=== PATIENT | male | born 2000 | race Caucasian/White ===

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

== ENCOUNTER 2018-05-25 21:54 | Inpatient (IN) | payer BC, OTHER ==
[~2018-05-25] VITALS: Ht 162.6 cm; Wt 68.2 kg
[2018-05-25 22:34] LABS: HEMATOCRIT 44.5 % (38.0-50.0); HEMOGLOBIN 15.1 G/DL (12.5-16.6); MCH 29.3 PG (29.0-34.0); MCHC 33.9 G/DL (30.0-36.0); MCV 86.4 FL (86-99); PLATELET COUNT 273 K/uL (156-360); RBC DIS.WIDTH-SD 38.1 % (39-53); RED BLOOD COUNT 5.15 M/uL (4.00-5.50); WHITE BLOOD COUNT 13.8 K/uL (4.1-10.2)
[2018-05-25 22:54] LABS: CHLORIDE 101 mEq/L (99-109); POTASSIUM 4.6 mEq/L (3.7-5.4); SODIUM 137 mEq/L (136-147)
[2018-05-25 22:56] LABS: GLUCOSE 249 mg/dL (70-99)
[2018-05-25 22:59] LABS: SERUM ETHYL ALCOHOL < 10 mg/dL
[2018-05-25 23:00] LABS: CREATININE 1.4 mg/dL (0.6-1.3); GFR ESTIMATE (CALCULATED) > 59 mL/min/ (58.99-99999)
[2018-05-25 23:02] LABS: UREA NITROGEN (BUN) 11 mg/dL (9-23)
[2018-05-25 23:03] LABS: ACETAMINOPHEN (TYLENOL) < 10 mcg/mL (10-30); SALICYLATE < 5.0 MG/DL (15-30)
[2018-05-26 01:49] LABS: AMPHETAMINE NEGATIVE (500 ng/mL); BARBITURATES NEGATIVE (200 ng/mL); BENZODIAZEPINES PRESUMPTIVE POSITIVE (150 ng/mL); BUPRENORPHINE NEGATIVE (10 ng/mL); COCAINE PRESUMPTIVE POSITIVE (150 ng/mL); METHADONE NEGATIVE (200 ng/mL); METHAMPHETAMINE NEGATIVE (500 ng/mL); OPIATES (MORPHINE) PRESUMPTIVE POSITIVE (100 ng/mL); OXYCODONE NEGATIVE (100 ng/mL); PHENCYCLIDINE NEGATIVE (25 ng/mL); PROPOXYPHENE NEGATIVE (300 ng/mL); THC CANNABINOIDS PRESUMPTIVE POSITIVE (50 ng/mL); TRICYCLIC ANTIDEPRESSANTS NEGATIVE (300 ng/mL)
[2018-05-26 02:42] LABS: BENZODIAZEPINES, URINE SCREEN POSITIVE (200 ng/mL)
[2018-05-26 03:30] LABS: ALBUMIN 4.6 g/dL (3.2-4.8)
[2018-05-26 03:33] LABS: TOTAL PROTEIN 7.5 g/dL (6.4-8.3)
[2018-05-26 03:35] LABS: TOTAL BILIRUBIN 0.5 mg/dL (0.0-1.0)
[2018-05-26 03:36] LABS: ALKALINE PHOSPHATASE 65 IU/L (3-129)
[2018-05-26 03:38] LABS: AST (GOT) 25 IU/L (2-34); DIRECT BILIRUBIN 0.2 mg/dL (0.0-0.3)
[2018-05-26 03:39] LABS: ALT (GPT) 40 IU/L (3-49)
[2018-05-26 04:54] VITALS: BP 141/89; BP 151/71
[2018-05-26 07:54] VITALS: BP 125/77
[2018-05-26 08:16] LABS: BASOPHIL (%) 0.1 % (0-1); EOSINOPHIL (%) 0 % (0-5); HEMATOCRIT 43.4 % (38.0-50.0); HEMOGLOBIN 14.4 G/DL (12.5-16.6); IMMATURE GRANULOCYTE (%) 0.3 % (0.0-0.7); LYMPHOCYTE (%) 3.6 % (15-42); LYMPHOCYTE COUNT 0.4 K/uL (1.0-2.8); MCH 28.3 PG (29.0-34.0); MCHC 33.2 G/DL (30.0-36.0); MCV 85.3 FL (86-99); MONOCYTE COUNT 0.4 K/uL (0-0.8); PLATELET COUNT 243 K/uL (156-360); RBC DIS.WIDTH-CV 11.9 % (11.8-14.6); RBC DIS.WIDTH-SD 37.1 % (39-53); RED BLOOD COUNT 5.09 M/uL (4.00-5.50); WHITE BLOOD COUNT 11.8 K/uL (4.1-10.2)
[2018-05-26 08:38] LABS: CHLORIDE 102 mEq/L (99-109); SODIUM 139 mEq/L (136-147)
[2018-05-26 08:44] LABS: CREATININE 1.1 mg/dL (0.6-1.3); GFR ESTIMATE (CALCULATED) > 59 mL/min/ (58.99-99999)
[2018-05-26 08:45] LABS: UREA NITROGEN (BUN) 8 mg/dL (9-23)
[2018-05-26 09:02] LABS: GLUCOSE 164 mg/dL (70-99)
[2018-05-26 11:57] VITALS: BP 134/87
[2018-05-26 16:21] VITALS: BP 139/87
[2018-05-26 19:24] VITALS: BP 138/85
[2018-05-26 23:55] VITALS: BP 136/78
[2018-05-27 03:55] VITALS: BP 135/85
[2018-05-27 06:52] LABS: BASOPHIL (%) 0.1 % (0-1); EOSINOPHIL (%) 0.1 % (0-5); HEMOGLOBIN 14.2 G/DL (12.5-16.6); IMMATURE GRANULOCYTE (%) 0.5 % (0.0-0.7); LYMPHOCYTE (%) 9.9 % (15-42); LYMPHOCYTE COUNT 1.1 K/uL (1.0-2.8); MCH 28.1 PG (29.0-34.0); MCHC 32.3 G/DL (30.0-36.0); MONOCYTE (%) 4.5 % (3-12); MONOCYTE COUNT 0.5 K/uL (0-0.8); NEUTROPHIL (%) 84.9 % (45-76); NEUTROPHIL COUNT 9.6 K/uL (1.8-6.4); PLATELET COUNT 256 K/uL (156-360); RBC DIS.WIDTH-CV 12.3 % (11.8-14.6); RBC DIS.WIDTH-SD 39.4 % (39-53); RED BLOOD COUNT 5.06 M/uL (4.00-5.50); WHITE BLOOD COUNT 11.3 K/uL (4.1-10.2)
[2018-05-27 07:30] LABS: CHLORIDE 106 MEQ/L (99-109); CREATININE 0.9 MG/DL (0.6-1.3); GFR ESTIMATE (CALCULATED) > 59 mL/min/ (58.99-99999); GLUCOSE 128 mg/dL (70-99); POTASSIUM 4.5 MEQ/L (3.7-5.4); SODIUM 140 MEQ/L (136-147); UREA NITROGEN (BUN) 12 mg/dL (9-23)
[2018-05-27 07:54] VITALS: BP 130/83
[2018-05-27] MEDS ORDERED: PANTOPRAZOLE SO40 MG PO (09:51)
[2018-05-27] MEDS ORDERED: ATARAX,VISTARIL50 MG PO (09:51)
[2018-05-27] MEDS ORDERED: IBUPROFEN600 MG PO (09:52)
[2018-05-27] MEDS ORDERED: DIAZEPAM5 MG PO (09:52)
[2018-05-27] MEDS ORDERED: 5-HTP200 MG PO (09:53)
[2018-05-27 11:40] VITALS: BP 127/69
[2018-05-27 15:53] VITALS: BP 135/84
[2018-05-27 19:40] VITALS: BP 118/77
[2018-05-27 23:57] VITALS: BP 119/66
[2018-05-28 03:40] VITALS: BP 134/70
[2018-05-28 07:33] VITALS: BP 136/74
[2018-05-28] MEDS ORDERED: AMOX TR-K CLV1 EAC4 PO (09:46)
[2018-05-28] MEDS ORDERED: PREDNISONE20 MG PO (09:47)
[2018-05-28] MEDS ORDERED: XOPENEX1.25 MG/0. AEROSOL (09:47)
== END 2018-05-28 13:00 | DRG 917 ==
LOC: EME 21:54 → 5SOUTH 05-26 02:40 → EDOF 05-26 02:40 → ENRESERV 05-26 02:47 → 5SOUTH 05-26 04:09 → ENRESERV 05-27 15:42 → 5SOUTH 05-27 16:08
PROVIDERS: Emergency Medicine; Hospitalist; Physician Assistant
DX: T40.1X1A Poisoning by heroin, accidental (unintentional), initial encounter (principal); T42.4X1A Poisoning by benzodiazepines, accidental (unintentional), initial encounter; J69.0 Pneumonitis due to inhalation of food and vomit; K92.0 Hematemesis; N17.9 Acute kidney failure, unspecified; F12.10 Cannabis abuse, uncomplicated; F14.90 Cocaine use, unspecified, uncomplicated; F11.90 Opioid use, unspecified, uncomplicated; J45.909 Unspecified asthma, uncomplicated; F43.10 Post-traumatic stress disorder, unspecified; F48.1 Depersonalization-derealization syndrome; F17.200 Nicotine dependence, unspecified, uncomplicated; F41.0 Panic disorder [episodic paroxysmal anxiety]; F32.9 Major depressive disorder, single episode, unspecified; Z81.8 Family history of other mental and behavioral disorders
CPT/HCPCS: 71045; 71046; 80048; 80076; 83605; 84999; 85025; 85027; 87040; 93005; 94640; 94799; 99281; 99285; G0480; J0295; J1200; J1650; J1885; J2405; J2920; J2930; J7030; J7050

== ENCOUNTER 2018-05-28 12:05 | Inpatient (IN) | payer BC, OTHER ==
[~2018-05-28 12:05] MED LIST: 5-HTP200 MG PO; AMOX TR-K CLV1 EAC4 PO; ATARAX,VISTARIL50 MG PO; DIAZEPAM5 MG PO; IBUPROFEN600 MG PO; PANTOPRAZOLE SO40 MG PO; PREDNISONE20 MG PO; XOPENEX1.25 MG/0. AEROSOL
[2018-05-28 13:45] VITALS: BP 136/97
[2018-05-28 17:22] VITALS: BP 116/62
[2018-05-29 08:08] VITALS: BP 124/73
[2018-05-29 17:06] VITALS: BP 141/75
[2018-05-30 07:45] VITALS: BP 139/63
[2018-05-30 15:24] VITALS: BP 131/96
[2018-05-31 07:38] VITALS: BP 115/76
[2018-05-31] MEDS ORDERED: ABILIFY5 MG PO (10:00)
[2018-05-31] MEDS ORDERED: PAXIL10 MG PO (10:00)
[2018-05-31] MEDS ORDERED: AMOX TR-K CLV1 EAC4 PO (10:00)
[2018-05-31] MEDS ORDERED: PREDNISONE20 MG PO (10:02)
== END 2018-05-31 12:03 | disposition home or self-care (01) | DRG 880 ==
LOC: 1WEST 12:05 → ENRESERV 12:07 → 1WEST 13:08
DX: F41.8 Other specified anxiety disorders (principal); R56.9 Unspecified convulsions; F12.90 Cannabis use, unspecified, uncomplicated; F14.90 Cocaine use, unspecified, uncomplicated; F19.90 Other psychoactive substance use, unspecified, uncomplicated; J45.909 Unspecified asthma, uncomplicated
CPT/HCPCS: 94799; 97150 GO; 97165 GO; J7512; Q0177